=== PATIENT | female | born 1995 | race Caucasian/White ===

== ENCOUNTER 2016-12-24 17:53 | Emergency (ER) | payer SELFPAY ==
[~2016-12-24] VITALS: Ht 157.5 cm; Wt 55.0 kg
[2016-12-24 17:56] VITALS: BP 154/99; TEMP 98.3; O2SAT 99
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
[2016-12-24] MEDS ORDERED: LIDOCAINE HCL 1% 50 ML VIAL IM ONE (19:15)
[2016-12-24] MEDS ORDERED: AZITHROMYCIN PWD FOR SUSP 1 GM PACKET PO ONE (19:15)
[2016-12-24] MEDS ORDERED: cefTRIAXone 250 MG VIAL IM ONE (19:15)
[2016-12-24] MEDS ORDERED: LIDOCAINE HCL 1% PF 30 ML VIAL ONE (19:46)
[2016-12-24 20:09] LABS: BACTERIA, URINE OCC /hpf; BLOOD, URINE NEG (NEG); COMMENT (UR) CULT NOT INDICATED; CULTURE IF INDICATED CULT NOT INDICATED; GLUCOSE,URINE NEG (NEG); KETONE, URINE NEG (NEG); NITRITE,URINE NEG (NEG); PH, URINE 6.5 (5.0-8.5); SQUAMOUS EPITHELIAL CELL URINE 4 /hpf (0-5); URINE COLOR COLORLESS (YELLW/STRAW)
[2016-12-24] MEDS ORDERED: DOXY100C PO (20:23)
[2016-12-24 20:33] VITALS: BP 128/95
[2016-12-24 21:54] LABS: CHLAMYDIA PCR NOT DETECTED (NOT DETECT); NEISSERIA PCR NOT DETECTED (NOT DETECT)
== END 2016-12-24 20:47 | disposition home or self-care (01) ==
LOC: NEPD 17:53
DX: N73.0 Acute parametritis and pelvic cellulitis (principal)
CPT/HCPCS: 81001; 84703; 87210; 87491; 87591; 96372; 99284; J0696